=== PATIENT | male | born 2005 | race Caucasian/White ===

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

== ENCOUNTER 2025-04-01 17:32 | Emergency (ER) | payer SELFPAY ==
[2025-04-01] MEDS: Ketorolac 30 MG/ML SDV IM ONE (19:19)
== END 2025-04-01 20:15 | disposition home or self-care (01) ==
LOC: MW.ED 17:32
DX: S52.125A Nondisplaced fracture of head of left radius, initial encounter for closed fracture (principal); S62.002A Unspecified fracture of navicular [scaphoid] bone of left wrist, initial encounter for closed fracture; S70.01XA Contusion of right hip, initial encounter; Z79.899 Other long term (current) drug therapy; W17.89XA Other fall from one level to another, initial encounter; Y93.89 Activity, other specified
CPT/HCPCS: 29105; 73080; 73110; 73130; 73502; 96372; 99283; A9270; J1885